=== PATIENT | male | born 1945 | race Caucasian/White ===

== ENCOUNTER 2021-11-20 13:32 | Emergency (ER) | payer BC ==
[~2021-11-20] VITALS: Ht 175.3 cm; Wt 43.2 kg
--- NOTE | 2021-11-20 15:19 | EKG ---
[facility] [address] [facility] [place] [address] Signed Normal sinus rhythm Nonspecific T wave abnormality Abnormal ECG No previous ECGs available Confirmed by MARISSA ECHEVARRIA MD ([id number]) on 11/20/2021 3:19:37 PM Electronically Signed By: MARISSA ECHEVARRIA MD 11/20/21 1519 PATIENT NAME: ENMA HANSNO Electrocardiogram DATE OF : 49 PHYSICIAN: MARISSA ECHEVARRIA MD REPORT #: [id number] REPORT IS CONFIDENTIAL AND NOT TO BE RELEASED WITHOUT AUTHORIZATION
[2021-11-20] MEDS ORDERED: NITROGLYCERIN0.4 MG SL (16:01)
== END 2021-11-20 16:27 | disposition home or self-care (01) ==
LOC: ED 13:32
DX: R06.00 Dyspnea, unspecified (principal); R07.9 Chest pain, unspecified
CPT/HCPCS: 36415; 71045; 80048; 83880; 84484; 85025; 85379; 93005; 93010; 99285-25